=== PATIENT | female | born 1935 | race Caucasian/White ===

== ENCOUNTER 2017-12-03 00:50 | Emergency (ER) | payer OTHER, MEDICARE ==
[~2017-12-03] VITALS: Ht 154.9 cm; Wt 73.9 kg
[~2017-12-03 00:50] MED LIST: ASPIR 8181 MG PO; CITRACAL PETITE1 TAB PO; LEVOTHYROXINE0.1 M1 PO; LISINOPRIL20 MG PO; OMEPRAZOLE40 MG PO; SIMVASTATIN20 MG PO; VENLAFAXINE75 MG PO; VESICARE 5MG5 MG PO; VITAMIN C500 M1; VITAMIN D32000 IU; WOMEN'S DAILY1 TAB PO
--- NOTE | 2017-12-03 01:49 | ED GENERAL ADULT ---
History of Present Illness General Chief Complaint: General Adult Stated Complaint: "COSTIPATED FOR 7 DAYS" Source: patient Exam Limitations: no limitations Vital Signs & Intake/Output Vital Signs & Intake/Output Vital Signs Date Time Temp Pulse Resp B/P B/P Pulse O2 O2 Flow FiO2 Mean Ox Delivery Rate 12/03 0447 82 20 186/78 97 12/03 0104 98.2 63 16 161/61 96 Room Air Allergies Coded Allergies: NO KNOWN ALLERGIES (02/25/14) Reconcile Medications Ascorbic Acid (Vitamin C) (Unknown Strength) CTB (Unknown Dose) DAILY SUPPLEMENT (Reported) Aspirin (Ecotrin) 81 MG TABLET.DR 1 TAB PO DAILY HEART HEALTH (Reported) CALCIUM CITRATE/VITAMIN D3 (Citracal-Vit D 200 MG-250 Tab) 200 MG CALCIUM-250 UNIT TABLET 1 TAB PO DAILY SUPPLEMENT (Reported) Levothyroxine Sodium 0.1 MG TAB 1 TAB PO DAILY AC THYROID (Reported) Lisinopril 20 MG TABLET 1 TAB PO DAILY BP (Reported) MULTIVITS,CA,MINERALS/IRON/FA (Women's Daily Caplet) 27 MG IRON-400 MCG TABLET 1 TAB PO DAILY SUPPLEMENT (Reported) Omeprazole 40 MG CAPSULE.DR 1 CAP PO DAILY GI (Reported) Simvastatin (Zocor) 20 MG TAB 1 TAB PO QPM CHOLESTEROL (Reported) Solifenacin Succinate (Vesicare) 5 MG TABLET 1 TAB PO DAILY BLADDER (Reported ) VENLAFAXINE HCL (Venlafaxine) 75 MG TABLET 1 TAB PO BID DEPRESSION (Reported) Vitamin D (Vitamin D3) (Unknown Strength) SGL (Unknown Dose) DAILY SUPPLEMENT (Reported) Triage Note: 82YO FEMALE TO TRIAGE W/CO CONSTIPATION X 5 D. STATES NO RELIEF FROM MAG CITRATE OR MIRALAX Triage Nurses Notes Reviewed? yes Onset: Gradual Duration: day(s): Timing: recent history HPI: 12/03/17 2:40 AM This is a adan 82-year-old woman who presents to the emergency department for diarrhea. The patient states she had constipation for several days and then took mag citrate earlier today. Since then she's had explosive diarrhea and abdominal cramping. No vomiting, no fever. No blood in the diarrhea. Past History Travel History Traveled to [place] past 21 day No Medical History Any Pertinent Medical History? see below for history Neurological: NONE EENT: NONE Cardiovascular: hypertension Respiratory: NONE Gastrointestinal: NONE Hepatic: NONE Renal: NONE Musculoskeletal: NONE Psychiatric: NONE Endocrine: hypothyroidism Tetanus Vaccine: 02/25/14 Surgical History Surgical History: none Psychosocial History What is your primary language Vincentian Tobacco Use: Never used Family History Hx Contributory? No Review of Systems Review of Systems Constitutional: Denies: fever. EENTM: Reports: no symptoms. Respiratory: Denies: short of breath. Cardiovascular: Denies: chest pain. GI: Reports: see HPI. Denies: vomiting. Genitourinary: Reports: no symptoms. Musculoskeletal: Reports: no symptoms. Skin: Reports: no symptoms. Neurological/Psychological: Reports: no symptoms. Hematologic/Endocrine: Reports: no symptoms. Immunologic/Allergic: Reports: no symptoms. Physical Exam Physical Exam General Appearance: alert, awake, anxious Head: atraumatic, normal appearance Eyes: Bilateral: normal appearance, PERRL, EOMI. Ears, Nose, Throat: normal ENT inspection Neck: normal inspection, supple Respiratory: normal breath sounds, chest non-tender, no respiratory distress Cardiovascular: regular rate/rhythm Peripheral Pulses: 4+ radial (R), 4+ radial (L) Gastrointestinal: soft, non-tender Back: normal range of motion Extremities: normal inspection, no edema Neurologic/Psych: no motor/sensory deficits, awake, alert, oriented x 3 Skin: intact, normal color, warm/dry Core Measures ACS in differential dx? No CVA/TIA Diagnosis: No Sepsis Present: No Sepsis Focused Exam Completed? No Progress Differential Diagnoses I considered the following diagnoses in my evaluation of the patient: [Bowel obstruction, diverticulitis, adverse drug reaction] Plan of Care: Orders Procedure Date/time Status COMPREHENSIVE METABOLIC PANEL 12/03 226 Complete CBC WITHOUT DIFFERENTIAL 12/03 226 Complete Laboratory Tests 12/03/17 0245: Anion Gap 14, Estimated GFR 36 L, BUN/Creatinine Ratio 17.1, Glucose 116 H, Calcium 9.5, Total Bilirubin 0.8, AST 30, ALT 35, Alkaline Phosphatase 55, Total Protein 7.1, Albumin 4.4, Globulin 2.7, Albumin/Globulin Ratio 1.6, CBC w Diff NO MAN DIFF REQ, RBC 4.28, MCV 91.3, MCH 31.1 H, MCHC 34.0, RDW 12.9, MPV 7.9, Gran % 67.9, Lymphocytes % 23.0, Monocytes % 8.8, Eosinophils % 0, Basophils % 0.3, Absolute Granulocytes 6.2, Absolute Lymphocytes 2.1, Absolute Monocytes 0.8 H, Absolute Eosinophils 0, Absolute Basophils 0 Initial ED EKG: none Departure Departure Disposition: STILL A PATIENT Condition: Stable Clinical Impression Primary Impression: Diarrhea Secondary Impressions: Adverse drug effect Referrals: Raquel JOSE,Redd Griggs (PCP/Family) Departure Forms: Customer Survey General Discharge Information Comments Patient was treated with IV fluids and by mouth Bentyl. CT scan and labs were ordered. Labs were unremarkable other than azotemia and mild creatinine elevation. She did receive IV fluids. Bentyl was given. Diarrhea resolved. Abdomen is soft and nontender. CT unremarkable. MPRESSION: No acute findings of the abdomen or pelvis. No inflammatory changes. No obstruction. Liquid stool throughout the colon. DICTATED BY: Jero Crowe MD DATE/TIME DICTATED:12/03/17346 RESIDENTIAL DIRECTOR:JAYLYN DATE/TIME TRANSCRIBED:12/03/17346 CONFIDENTIAL, DO NOT COPY WITHOUT APPROPRIATE AUTHORIZATION. <Electronically signed in Other Vendor System> SIGNED BY: Jero Crowe MD 12/03 0358 Critical Care Note Critical Care Note Critical Care Time: non-applicable
[2017-12-03 03:01] LABS: ABSOLUTE BASOPHIL COUNT 0 /CUMM (0.0-0.2); ABSOLUTE EOSINOPHIL COUNT 0 /CUMM (0.0-0.7); ABSOLUTE GRANULOCYTE CT 6.2 /CUMM (1.4-6.5); ABSOLUTE LYMPH COUNT 2.1 /CUMM (1.2-3.4); ABSOLUTE MONOCYTE COUNT 0.8 /CUMM (0.10-0.60); BASOPHIL % 0.3 % (0.0-2.0); EOSINOPHIL % 0 % (0-5); GRANULOCYTE % 67.9 % (42.2-75.2); HEMATOCRIT 39.1 % (37-47); MEAN CORPUSCULAR HGB 31.1 PG (27.0-31.0); MEAN CORPUSCULAR VOLUME 91.3 FL (81.0-99.0); MEAN PLATELET VOLUME 7.9 FL (7.4-10.4); PLATELET COUNT 300 /CUMM (130-400); RBC DISTRIBUTION WIDTH 12.9 % (11.5-14.5); RED BLOOD CELL CT 4.28 /CUMM (4.20-5.40); WHITE BLOOD CELL COUNT 9.1 /CUMM (4.8-10.8)
--- NOTE | 2017-12-03 03:58 | CT SCAN REPORT ---
EXAMINATION: CT ABDOMEN AND PELVIS WITHOUT CONTRAST CLINICAL INFORMATION: Alternating diarrhea and constipation. Rule out obstruction. COMPARISON: None TECHNIQUE: Multidetector volumetric imaging was performed from the superior aspect of the liver through the pubic symphysis. Sagittal and coronal reformatted images were obtained on the technologist's workstation. DLP: 459 mGy-cm FINDINGS: LUNG BASES: The visualized lung bases are unremarkable. LIVER, GALLBLADDER, AND BILIARY TREE: The liver is normal in size, shape, and attenuation. No focal hepatic lesion or biliary ductal dilatation is present. The gallbladder is unremarkable with no evidence of radiopaque gallstones, gallbladder wall thickening, or obvious pericholecystic inflammatory changes. PANCREAS: Unremarkable. SPLEEN: Unremarkable. ADRENAL GLANDS: Unremarkable. KIDNEYS AND URETERS: The kidneys are normal in size, shape, and attenuation. No hydronephrosis, hydroureter, or calculi seen. No perinephric stranding. BLADDER: Unremarkable. GASTROINTESTINAL TRACT: The stomach is decompressed with no gross abnormality. The small bowel is normal in caliber. There is no obstruction. No colonic wall thickening or inflammatory change. Liquid stool seen throughout the colon, consistent with the history of diarrhea. Normal appendix. No free air or free fluid. ABDOMINAL WALL: No significant hernia is appreciated. LYMPH NODES: Normal. VASCULAR: Normal caliber aorta with moderate atherosclerotic calcification. PELVIC VISCERA: The uterus and adnexa are unremarkable. OSSEOUS STRUCTURES: No acute or suspicious osseous abnormality. Grade 1 anterolisthesis of L5 on S1. Multilevel small endplate osteophytes are present. IMPRESSION: No acute findings of the abdomen or pelvis. No inflammatory changes. No obstruction. Liquid stool throughout the colon.
[2017-12-03 04:47] VITALS: BP 186/78
== END 2017-12-03 05:45 ==
LOC: ERH 00:50
PROVIDERS: Emergency Medicine
DX: R19.7 Diarrhea, unspecified (principal); T47.4X5A Adverse effect of other laxatives, initial encounter; R10.9 Unspecified abdominal pain
CPT/HCPCS: 74176; 96360